=== PATIENT | male | born 1980 | race Caucasian/White ===

== ENCOUNTER 2016-10-04 14:40 | Emergency (ER) | payer SELFPAY ==
[2016-10-04] MEDS ORDERED: OXYCODONE-ACETAMINOPHEN 5-325 MG TABLET PO ONE (15:26)
[2016-10-04] MEDS ORDERED: LIDOCAINE 5% (700 MG) TRANSDERMAL ADH..PATCH TP ONE (15:26)
[2016-10-04] MEDS ORDERED: CYCLOBENZAPRINE HCL 10 MG TABLET PO ONE (15:26)
--- NOTE | 2016-10-04 15:27 | ER Document Report ---
HPI - HPI Patient complains to provider of: low back pain Onset: Other - chronic Onset/Duration: Persistent Quality of pain: Achy, Sharp Pain Level: 5 Context: Complains of chronic low back pain for many years since he was 20 years old. Patient states that occasionally his pain will flareup. Patient states that it is been causing him to miss work. Patient states pain is in typical location of where he had pain in the past. Patient states that he never was evaluated after falling down 2 stories when he was 20 years old. Patient complains of pain that radiates to the left lower extremity along the lateral aspect. Patient denies any paresthesia. Patient denies any extremity weakness. Patient denies any urinary retention or incontinence. Patient denies any fever. Associated Symptoms: Other - Pain that radiates to left lower leg. denies: Fever Exacerbated by: Standing, Movement, Walking Relieved by: Denies Similar symptoms previously: Yes Recently seen / treated by doctor: No - ROS ROS below otherwise negative: Yes Systems Reviewed and Negative: Yes All other systems reviewed and negative - CONSTITUTIONAL Constitutional: DENIES: Fever, Chills - NEURO Neurology: DENIES: Headache, Weakness - MUSCULOSKELETAL Musculoskeletal: REPORTS: Extremity pain, Back Pain - DERM Skin Color: Normal Skin Problems: None Past Medical History - General Information source: Patient - Social History Smoking Status: Current Every Day Smoker Chew tobacco use (# tins/day): No Frequency of alcohol use: Rare Drug Abuse: None Occupation: painting Lives with: Family Family History: Reviewed & Not Pertinent Renal/ Medical History: Denies: Hx Peritoneal Dialysis Musculoskeltal Medical History: Reports Other - back pain Surgical Hx: Negative - Immunizations Immunizations up to date: No Hx Diphtheria, Pertussis, Tetanus Vaccination: Yes Vertical Provider Document - CONSTITUTIONAL Agree With Documented VS: Yes Exam Limitations: No Limitations General Appearance: WD/WN, No Apparent Distress Notes: PHYSICAL EXAMINATION: GENERAL: Well-appearing, well-nourished and in no acute distress. HEAD: Atraumatic, normocephalic. EYES: sclera clear, anicteric, conjunctiva are normal. ENT: nares patent, Moist mucous membranes. NECK: Normal range of motion, supple no lymphadenopathy LUNGS: respirations unlabored HEART: Regular rate and rhythm without murmurs EXTREMITIES: Normal range of motion, no pitting or edema. No cyanosis. Gait normal, pt ambulates without difficulty BACK: left lower lumbar paraspinal tenderness, no lumbar midline tenderness, no deformities or step-offs. No CVA tenderness. NEUROLOGICAL: Cranial nerves grossly intact. Normal speech, normal gait. No saddle anesthesia. PSYCH: Normal mood, normal affect. SKIN: Warm, Dry, normal turgor, no rashes or lesions noted. - INFECTION CONTROL TRAVEL OUTSIDE OF THE [place] IN LAST 30 DAYS: No - RESPIRATORY O2 Sat by Pulse Oximetry: 99 Course - Re-evaluation Re-evalutation: 10/04/16 16:33 The patient presents with low back pain without signs of spinal cord compression , cauda equina syndrome, infection, aneurysm, or other serious etiology. The patient is neurologically intact. Given the extremely risk of these diagnoses further testing and evaluation for these possibilities does not appear to be indicated at this time. Patient has been instructed to return if the symptoms worsen or change in any way. - Vital Signs Vital signs: Temp Pulse Resp BP Pulse Ox 97.9 F 89 16 125/96 H 99 10/04/16 14:43 10/04/16 14:43 10/04/16 14:43 10/04/16 14:43 10/04/16 14:43 - Diagnostic Test Radiology reviewed: Reports reviewed Discharge - Discharge Clinical Impression: Low back pain Qualifiers: Chronicity: unspecified Back pain laterality: left Sciatica presence: with sciatica Sciatica laterality: sciatica of left side Qualified Code(s): M54.42 - Lumbago with sciatica, left side Condition: Stable Disposition: HOME, SELF-CARE Instructions: Family Physicians / Practices Additional Instructions: Return immediately for any new or worsening symptoms Followup with your primary care provider, call tomorrow to make a followup appointment LOW BACK PAIN: Three out of every four people will have an episode of disabling back pain during their lifetime. Most commonly the pain is due to straining of the muscles and ligaments in the low back. Usual treatment includes: (1) Rest on a firm surface. Avoid lying on your stomach. (2) Ice pack the painful area. After a few days, gentle heat may be used intermittently to relax the area, or ice packs can be continued. (3) Medication may be needed -- muscle relaxers and antiinflammatory medicines are commonly used. (4) As the back improves, exercises are prescribed to strengthen the back and abdominal muscles. Your doctor will advise you on the proper care for your back at each stage in your recovery. You may be better in a few days -- or healing may take several weeks. If new symptoms of a "herniated disc" (radiation of pain, numbness, or tingling down the back of the leg or weakness in the leg) occur, you should be re-examined. Further testing may be necessary. ORAL NARCOTIC MEDICATION: You have been given a prescription for pain control. This medication is a narcotic. It's best taken with food, as nausea can result if taken on an empty stomach. Don't operate machinery or drive within six hours of taking this medication. Do not combine this medicine with alcohol, or with any medication which can cause sedation (such as cold tablets or sleeping pills) unless you get permission from the physician. Narcotics tend to cause constipation. If possible, drink plenty of fluids and eat a diet high in fiber and fruits. Please be aware that prescription narcotics also have the potential for abuse. People become addicted to these medications because of the general sense of wellbeing that they induce. This feeling along with a significant reduction in tension, anxiety, and aggression provides a stimulating seductive quality to these drugs. Once your pain is under control, we encourage you to discard your unused narcotics. MUSCLE RELAXERS: Muscle relaxing medications are usually prescribed for acute muscle spasm or injury to the neck and back. They are often combined with antiinflammatory pain medication for increased relief. You may stop the muscle relaxer when the pain and stiffness have improved. Start the medication again if spasms recur. Muscle relaxers may cause drowsiness, especially with the first dose. Do not operate machinery or drive while under the effects of the medication. Most muscle relaxers last up to 24 hours. Do not combine the medication with alcohol. ICE PACKS: Apply ice packs frequently against the painful area. Many different schedules are recommended, such as "20 minutes on, 20 minutes off" or "one hour ice, two hours rest." If you need to work, you may need to go longer between ice treatments. You should plan to have the area ice packed AT LEAST one fourth of the time. The ice should be applied over the wrap, tape, or splint, or over a layer of cloth -- not directly against the skin. Some ice bags have a built-in cloth and can be put directly on the skin. WARM PACKS: After approximately two days, apply gentle heat (such as a heating pad or hot water bottle) for about 20 to 30 minutes about every two hours -- at least four times daily. Warmth and elevation will help you make a more rapid recovery , and will ease the pain considerably. Do not use HOT heat, and never apply heat for longer than 30 minutes. The continuous heat can invisibly damage skin and muscles -- even when no burn is seen on the surface. Damaged muscles can make you MORE sore. FOLLOW-UP CARE: If you have been referred to a physician for follow-up care, call the physician s office for an appointment as you were instructed or within the next two days. If you experience worsening or a significant change in your symptoms, notify the physician immediately or return to the Emergency Department at any time for re-evaluation. Prescriptions: Cyclobenzaprine HCl [Flexeril 10 Mg Tablet] 10 mg PO TID #15 tablet Oxycodone HCl/Acetaminophen [Percocet 5-325 mg Tablet] 1 tab PO ASDIR PRN #15 tablet PRN Reason: Prednisone [Deltasone 20 mg Tablet] 3 tab PO DAILY 5 Days Forms: Return to Work Referrals: [facility] [Provider Group] - Follow up as needed
--- NOTE | 2016-10-04 16:17 | RADIOLOGY REPORT (SQ) ---
EXAM DESCRIPTION: L SPINE WHOLE COMPLETED DATE/TIME: 10/04/2016 4:07 pm REASON FOR STUDY: low back pain COMPARISON: None. NUMBER OF VIEWS: Five views including obliques. TECHNIQUE: AP, lateral, oblique, and sacral radiographic images acquired of the lumbar spine. LIMITATIONS: None. FINDINGS: MINERALIZATION: Normal. SEGMENTATION: Normal. No transitional anatomy. ALIGNMENT: Normal. VERTEBRAE: Maintained height. No fracture or worrisome bone lesion. DISCS: Preserved height. No significant osteophytes or end plate irregularity. POSTERIOR ELEMENTS: Pedicles and facets are intact. No pars defect or posterior arch defects. HARDWARE: None in the spine. PARASPINAL SOFT TISSUES: Normal. PELVIS: Intact as visualized. No fractures or worrisome bone lesions. SI joints intact. OTHER: No other significant finding. IMPRESSION: NORMAL 5 VIEW LUMBAR SPINE. TECHNICAL DOCUMENTATION: JOB ID: [id number] [employer]- All Rights Reserved
[2016-10-04 16:48] VITALS: BP 121/72
== END 2016-10-04 16:48 | disposition home or self-care (01) ==
LOC: ER 14:40
DX: M54.42 Lumbago with sciatica, left side (principal); M54.5 Low back pain; M79.605 Pain in left leg; F17.200 Nicotine dependence, unspecified, uncomplicated
CPT/HCPCS: 72110; 99283

== ENCOUNTER 2017-03-12 12:32 | Emergency (ER) | payer SELFPAY ==
--- NOTE | 2017-03-12 13:20 | ER Document Report ---
ED General - General Chief Complaint: Overdose Stated Complaint: POSSIBLE OVERDOSE Time Seen by Provider: 03/12/17 13:12 Information source: Patient Notes: Patient is a 36-year-old male with a past medical history of admitted heroin abuse who presents today with his girlfriend. Supposedly the girlfriend prior to calling EMS found the patient "blue and seizing". When EMS arrived they noted pinpoint pupils and gave the patient 2 mg of intranasal Narcan with return of responsiveness. Patient currently denies any headache, chest pain, nausea, vomiting, or fevers. Patient states he swallowed a 25 mcg fentanyl patch to "get high". Patient states he brought this off the street. Patient denies any other drug abuse. TRAVEL OUTSIDE OF THE [place] IN LAST 30 DAYS: No - HPI Onset: This morning Onset/Duration: Sudden Quality of pain: No pain Severity: Severe Pain Level: Denies Associated symptoms: Other - See above Exacerbated by: Other - See above Relieved by: Other - See above Similar symptoms previously: Yes Recently seen / treated by doctor: No - Related Data Allergies/Adverse Reactions: Penicillins Allergy (Verified 10/04/16 14:44) Past Medical History - General Information source: Patient - Social History Smoking Status: Current Some Day Smoker Cigarette use (# per day): Yes Chew tobacco use (# tins/day): No Smoking Education Provided: No Frequency of alcohol use: None Drug Abuse: Other - See above Family History: Reviewed & Not Pertinent Renal/ Medical History: Denies: Hx Peritoneal Dialysis - Immunizations Immunizations up to date: No Hx Diphtheria, Pertussis, Tetanus Vaccination: Yes Review of Systems - Review of Systems Constitutional: denies: Fever EENT: denies: Eye discharge, Nose discharge Cardiovascular: denies: Chest pain, Palpitations Respiratory: denies: Short of breath Gastrointestinal: denies: Vomiting Genitourinary: denies: Dysuria Musculoskeletal: denies: Leg swelling Skin: Other - no hives. denies: Rash Neurological/Psychological: Other - no slurred speech -: Yes All other systems reviewed and negative Physical Exam - Vital signs Vitals: Temp Pulse Resp BP Pulse Ox 98.3 F 87 16 123/82 97 03/12/17 12:40 03/12/17 12:40 03/12/17 12:40 03/12/17 12:40 03/12/17 12:40 Notes: Reviewed vital signs and nursing note as charted by RN. CONSTITUTIONAL: Alert and oriented and responds appropriately to questions. Well -appearing; well-nourished HEAD: Normocephalic; atraumatic EYES: PERRL; no nystagmus ENT: Normal nose; no rhinorrhea; moist mucous membranes; pharynx without lesions noted NECK: Supple without meningismus; no carotid bruits; non-tender; no cervical lymphadenopathy, no masses CARD: Regular rate and rhythm; no murmurs RESP: Normal chest excursion without splinting or tachypnea; breath sounds clear and equal bilaterally ABD/GI: Normal bowel sounds; non-distended; soft, non-tender BACK: The back appears normal and is non-tender to palpation EXT: Normal ROM in all joints; non-tender to palpation; no edema SKIN: Normal color for age and race; warm; patient does have what appears to be a needle martine to the right arm in the antecubital fossa NEURO: CN II through XII are intact. Moves all extremities equally; Motor and sensory function intact PSYCH: The patient's mood and manner are appropriate. Grooming and personal hygiene are appropriate. Course - Re-evaluation Re-evalutation: 03/12/17 13:19 Given the history and physical examination we undressed the patient to make sure that there are no other patches present. Patient currently has stable vital signs with no focal neurological deficits. I called the Poison Control Center who recommended 24-hour observation given the ingestion of the patch. Patient denies any and all suicidal ideations. Labs are pending. 03/12/17 14:54 Patient is still awake and alert. He is still very polite. He still oriented 4. Patient has refused all laboratory work, EKG, and x-rays. Patient states he does not want an increased pill. I have explained to him and his significant other the importance of observation and admission. I have explained that we can provide multiple pain options and have case management talk to the patient. Patient understands but still does not want these labs performed. I told the patient that he is welcome to stay as long as he would like. Patient states he would like to go home. I have explained to the patient and the significant other the seriousness of this possible condition including permanent disability and and the recommendation from the Poison Control Center. Patient understands this. Patient is oriented 4. He understands risks and benefits. This was all explained in the presence of his significant other. Patient will be welcome to return at any time. He has been welcome to stay in the emergency department for as long as he would like. - Vital Signs Vital signs: Temp Pulse Resp BP Pulse Ox 98.3 F 87 11 L 111/67 97 03/12/17 12:40 03/12/17 12:40 03/12/17 13:08 03/12/17 13:08 03/12/17 13:09 Discharge - Discharge Clinical Impression: Accidental overdose Qualifiers: Encounter type: initial encounter Qualified Code(s): T50.901A - Poisoning by unspecified drugs, medicaments and biological substances, accidental ( unintentional), initial encounter Condition: Poor Disposition: AGAINST MEDICAL ADVICE Additional Instructions: Please feel free to return at any time that you would like for further evaluation and assessment. Please come back immediately with any pain, excessive sleepiness, difficulty breathing, or any other acute problems. Please follow-up with the primary doctor as we have discussed.
[2017-03-12 16:08] VITALS: BP 109/54
== END 2017-03-12 16:12 | disposition left against medical advice (07) ==
LOC: ER 12:32
DX: T40.4X1A Poisoning by other synthetic narcotics, accidental (unintentional), initial encounter (principal); F17.210 Nicotine dependence, cigarettes, uncomplicated; Z88.0 Allergy status to penicillin
CPT/HCPCS: 99284

== ENCOUNTER 2017-10-08 18:46 | Emergency (ER) | payer SELFPAY ==
--- NOTE | 2017-10-08 19:16 | ER Document Report ---
ED Medical Screen (RME) - General Chief Complaint: Abdominal Pain Stated Complaint: ABDOMINAL PAIN Time Seen by Provider: 10/08/17 19:14 Mode of Arrival: Ambulatory Information source: Patient TRAVEL OUTSIDE OF THE [place] IN LAST 30 DAYS: No - HPI Patient complains to provider of: abd pain Onset: This morning - pt with mid-epigastric pain that started earlier today. With N and vomiting times 1 - Related Data Allergies/Adverse Reactions: Penicillins Allergy (Verified 10/08/17 18:47) Past Medical History Renal/ Medical History: Denies: Hx Peritoneal Dialysis - Immunizations Immunizations up to date: No Hx Diphtheria, Pertussis, Tetanus Vaccination: Yes Physical Exam - Vital signs Vitals: Temp Pulse Resp BP Pulse Ox 97.7 F 56 L 20 149/94 H 100 10/08/17 19:03 10/08/17 19:03 10/08/17 19:03 10/08/17 19:03 10/08/17 19:03 Course - Vital Signs Vital signs: Temp Pulse Resp BP Pulse Ox 97.7 F 56 L 20 149/94 H 100 10/08/17 19:03 10/08/17 19:03 10/08/17 19:03 10/08/17 19:03 10/08/17 19:03
[2017-10-08] MEDS ORDERED: KETOROLAC TROMETHAMINE INJ/PF 30 MG/1 ML SDV IV ONE (20:24)
--- NOTE | 2017-10-08 20:27 | RADIOLOGY REPORT (SQ) ---
EXAM DESCRIPTION: ACUTE ABDOMEN SERIES COMPLETED DATE/TIME: 10/08/2017 7:29 pm REASON FOR STUDY: abd pain COMPARISON: None. NUMBER OF VIEWS: Three views. TECHNIQUE: Frontal chest, supine abdomen and upright/decubitus abdomen radiographic images acquired. LIMITATIONS: None. FINDINGS: CHEST: Airspace opacity noted at the right infrahilar region. No sizable pleural effusion or pneumothorax. FREE AIR: None. BOWEL GAS PATTERN: Nonobstructive pattern. No dilated loops or air fluid levels. CALCIFICATIONS: No suspicious calcifications. HARDWARE: None in the abdomen. SOFT TISSUES: No gross mass or suggestion of organomegaly. BONES: No acute findings. IMPRESSION: 1. Nonobstructive bowel gas pattern. 2. Airspace opacity at the right infrahilar region, may represent atelectasis or pneumonia. Radiogr aphic followup recommended to ensure complete resolution and exclude a different etiology. TECHNICAL DOCUMENTATION: JOB ID: [id number] 2010 [employer]- All Rights Reserved Reading location - IP/workstation name: [email or web address]
[2017-10-08 20:38] LABS: ABSOLUTE BASOPHILS # (AUTO) 0.1 10^3/uL (0.0-0.2); ABSOLUTE EOSINOPHILS # (AUTO) 0.2 10^3/uL (0.0-0.6); ABSOLUTE LYMPHOCYTES (AUTO) 2.2 10^3/uL (0.5-4.7); ABSOLUTE MONOCYTES (AUTO) 0.8 10^3/uL (0.1-1.4); ABSOLUTE NEUT (AUTO) 8.2 10^3/uL (1.7-8.2); BASOPHILS % (AUTO) 0.6 % (0-2); EOSINOPHILS % (AUTO) 1.7 % (0-6); HEMATOCRIT 48.1 % (37.9-51.0); HEMOGLOBIN 16.8 g/dL (13.5-17.0); LYMPHOCYTES % (AUTO) 19.3 % (13-45); MEAN CORPUSCULAR HEMOGLOBIN 32.7 pg (27.0-33.4); MEAN CORPUSCULAR HGB CONC 34.9 g/dL (32.0-36.0); MEAN CORPUSCULAR VOLUME 94 fl (80-97); PLATELET COUNT 246 10^3/uL (150-450); RED BLOOD COUNT 5.12 10^6/uL (4.35-5.55); RED CELL DISTRIBUTION WIDTH 13.3 % (11.5-14.0); SEGMENTED NEUTROPHILS % (AUTO) 71.4 % (42-78); TOTAL CELLS COUNTED % (AUTO) 100 %; WHITE BLOOD COUNT 11.5 10^3/uL (4.0-10.5)
[2017-10-08 20:42] LABS: APPEARANCE,URINE CLEAR; BILIRUBIN,URINE NEGATIVE (NEGATIVE); COLOR,URINE STRAW; GLUCOSE, URINE NEGATIVE (NEGATIVE); KETONES,URINE TRACE mg/dL (NEGATIVE); LEUKOCYTE ESTERASE,URINE NEGATIVE (NEGATIVE); NITRITE,URINE NEGATIVE (NEGATIVE); PROTEIN,URINE NEGATIVE (NEGATIVE); URINE SPECIFIC GRAVITY 1.005; UROBILINOGEN,URINE NEGATIVE mg/dL (<2.0)
[2017-10-08] MEDS ORDERED: NORMAL SALINE 1000 ML 1,000 ML IV ONE (21:14)
[2017-10-08] MEDS ORDERED: MORPHINE SULFATE 10 MG/ML INJ IV ONE (21:15)
[2017-10-08] MEDS ORDERED: ONDANSETRON HCL INJ/PF 4 MG/2 ML SDV IV ONE (21:15)
--- NOTE | 2017-10-08 21:17 | ER Document Report ---
ED GI/ - General Chief Complaint: Abdominal Pain Stated Complaint: ABDOMINAL PAIN Time Seen by Provider: 10/08/17 19:14 Mode of Arrival: Ambulatory Notes: Patient is a 36-year-old male comes emergency department for chief complaint of upper abdominal pain and vomiting. He states he has vomited 4 times since last night, nonbloody, normal bowel movement within the past 24 hours, denies fever or chills. Denies back pain. He states pain is very sharp at this time. He denies surgeries or daily medications. He smokes, drinks alcohol, denies IVDA, has taken street percocet in the past. TRAVEL OUTSIDE OF THE [place] IN LAST 30 DAYS: No - Related Data Allergies/Adverse Reactions: Penicillins Allergy (Verified 10/08/17 18:47) Past Medical History - General Information source: Patient - Social History Smoking Status: Current Every Day Smoker Chew tobacco use (# tins/day): No Frequency of alcohol use: Occasional Drug Abuse: None Lives with: Family Family History: Reviewed & Not Pertinent Patient has suicidal ideation: No Patient has homicidal ideation: No Renal/ Medical History: Denies: Hx Peritoneal Dialysis - Immunizations Immunizations up to date: No Hx Diphtheria, Pertussis, Tetanus Vaccination: Yes Review of Systems - Review of Systems Constitutional: No symptoms reported EENT: No symptoms reported Cardiovascular: No symptoms reported Respiratory: No symptoms reported Gastrointestinal: See HPI Genitourinary: No symptoms reported Male Genitourinary: No symptoms reported Musculoskeletal: No symptoms reported Skin: No symptoms reported Hematologic/Lymphatic: No symptoms reported Neurological/Psychological: No symptoms reported Physical Exam - Vital signs Vitals: Temp Pulse Resp BP Pulse Ox 97.7 F 56 L 20 149/94 H 100 10/08/17 19:03 10/08/17 19:03 10/08/17 19:03 10/08/17 19:03 10/08/17 19:03 - Notes Notes: GENERAL: Alert, interacts well. Slightly disheveled. HEAD: Normocephalic, atraumatic. EYES: Pupils equal, round, and reactive to light. Extraocular movements intact. ENT: Oral mucosa moist, tongue midline. NECK: Full range of motion. Supple. Trachea midline. LUNGS: Clear to auscultation bilaterally, no wheezes, rales, or rhonchi. No respiratory distress. HEART: Regular rate and rhythm. No murmur ABDOMEN: There is tenderness across the upper abdomen, no guarding, lower abdomen is completely benign. No distention. EXTREMITIES: Moves all 4 extremities spontaneously. No edema, normal radial and dorsalis pedis pulses bilaterally. No cyanosis. BACK: no cervical, thoracic, lumbar midline tenderness. No saddle anesthesia, normal distal neurovascular exam. NEUROLOGICAL: Alert and oriented x3. Normal speech. [cranial nerves II through XII grossly intact]. PSYCH: Normal affect, normal mood. SKIN: Warm, dry, normal turgor. No rashes or lesions noted. Course - Re-evaluation Re-evalutation: Patient on initial evaluation appears mildly uncomfortable but not as severe distress. He does have generalized upper abdominal tenderness, lower abdomen is completely benign. CBC with mild leukocytosis but no shift, chemistry shows low bicarbonate at 19, LFTs slightly elevated with ALT greater than AST. Bilirubin is normal, lipase is normal. Not an obstructive pattern. Ultrasound unremarkable with no ductal dilatation, cholecystitis, or other acute etiology noted. Acute abdominal series from triage reviewed, unremarkable bowels, questionable area on the chest x-ray for possible consolidation versus atelectasis, however patient has no fever, cough, shortness of breath, chest pain, or any other thoracic symptoms. Discussed results with patient. After discussion patient is in agreement for hepatitis panel to be performed, however we did not have enough blood in the lab and then we attempted to draw more blood patient changed his mind and states he will follow-up with primary for additional evaluation and management instead. Discussed treatments, return precautions, patient states understanding and agreement. Patient tolerated p.o. medications without any difficulty. Drinking fluids. Stable at time of discharge. - Vital Signs Vital signs: Temp Pulse Resp BP Pulse Ox 97.4 F 60 16 144/84 H 99 10/09/17 00:14 10/09/17 00:14 10/09/17 00:14 10/09/17 00:14 10/09/17 00:14 - Laboratory Result Diagrams: 10/08/17 20:21 10/08/17 22:25 Laboratory results interpreted by me: 10/08/17 10/08/17 10/08/17 20:21 20:21 22:25 WBC 11.5 H Carbon Dioxide 19 L AST 60 H ALT 122 H Urine Ketones TRACE H Discharge - Discharge Clinical Impression: Upper abdominal pain Vomiting Qualifiers: Vomiting type: unspecified Vomiting Intractability: non-intractable Nausea presence: with nausea Qualified Code(s): R11.2 - Nausea with vomiting, unspecified Condition: Stable Disposition: HOME, SELF-CARE Additional Instructions: Your ultrasound is normal. Your evaluation and symptoms are most consistent with inflammation of the upper gastrointestinal tract, recommendation is to take the Carafate, famotidine, as prescribed. You can also take Tums and Rolaids. Take Phenergan for nausea. Avoid alcohol, smoking, caffeine, NSAIDs, spicy food. Follow-up with primary care for additional evaluation and management. Because of elevated liver function tests I recommend follow-up testing including hepatitis panel as we discussed. Return if you worsen including vomiting, vomiting blood, severe pain, fever, black stools, or any other concerning symptoms. Prescriptions: Famotidine [Pepcid 20 mg Tablet] 20 mg PO BID #20 tablet Promethazine HCl [Phenergan 25 mg Tablet] 25 mg PO Q6H PRN #20 tablet PRN Reason: Sucralfate [Carafate 1 gm Tablet] 1 gm PO QID #20 tablet Forms: Return to Work
--- NOTE | 2017-10-08 22:47 | RADIOLOGY REPORT (SQ) ---
EXAM DESCRIPTION: US ABDOMEN LIMITED COMPLETED DATE/TME: 10/08/2017 21:14 CLINICAL HISTORY: 36 years Male, epigastric pain, vomiting Comparison: None. LIMITATIONS: None. FINDINGS: Gallbladder, negative sonographic Marsh's test, liver, a 0.3-cm diameter common bile duct, no intrahepatic ductal dilation, 11-cm right kidney, pancreas, visualized vasculature/abdominal aorta, and no significant ascites appear otherwise unremarkable. IMPRESSION: Normal RUQ-Abdominal Sonogram.
[2017-10-08 23:03] LABS: ALANINE AMINOTRANSFERASE 122 U/L (21-72); ALBUMIN 4.1 g/dL (3.5-5.0); ALKALINE PHOSPHATASE 71 U/L (38-126); ANION GAP 14 (5-19); ASPARTATE AMINO TRANSFERASE 60 U/L (17-59); BILIRUBIN,DIRECT 0.3 mg/dL (0.0-0.4); BILIRUBIN,TOTAL 0.8 mg/dL (0.2-1.3); BLOOD UREA NITROGEN 17 mg/dL (7-20); CARBON DIOXIDE 19 mmol/L (22-30); CHLORIDE 107 mmol/L (98-107); GLUCOSE 87 mg/dL (75-110); LIPASE 136.1 U/L (23-300); POTASSIUM 4.2 mmol/L (3.6-5.0); SODIUM 140.4 mmol/L (137-145); TOTAL PROTEIN 7.1 g/dL (6.3-8.2)
[2017-10-08] MEDS ORDERED: MORPHINE SULFATE IR 15 MG TABLET PO ONE (23:22)
[2017-10-08] MEDS ORDERED: SUCRALFATE 1 GM TABLET PO ONE (23:22)
[2017-10-08] MEDS ORDERED: FAMOTIDINE 20 MG TABLET PO ONE (23:22)
[2017-10-09 00:18] VITALS: BP 144/84
== END 2017-10-09 00:20 | disposition home or self-care (01) ==
LOC: ER 18:46
DX: R10.10 Upper abdominal pain, unspecified (principal); R11.2 Nausea with vomiting, unspecified; D72.829 Elevated white blood cell count, unspecified; R74.0 Nonspecific elevation of levels of transaminase and lactic acid dehydrogenase [LDH]; F17.200 Nicotine dependence, unspecified, uncomplicated; Z88.0 Allergy status to penicillin
CPT/HCPCS: 99285; 96361; 96374; 96375; 36415; 83690; 85025; 80053; 81001; 74022; 76705; J1885; J2270; J2405; J7030

== ENCOUNTER 2018-02-09 12:24 | Emergency (ER) | payer SELFPAY ==
[2018-02-09 13:13] VITALS: BP 120/88
[2018-02-09] MEDS ORDERED: IBUPROFEN 600 MG TABLET PO ONE (13:37)
[2018-02-09] MEDS ORDERED: DOXYCYCLINE HYCLATE 100 MG TABLET PO ONE (13:37)
--- NOTE | 2018-02-09 13:37 | ER Document Report ---
ED Extremity Problem, Upper - General Chief Complaint: Laceration Stated Complaint: LACERATION Time Seen by Provider: 02/09/18 13:18 Mode of Arrival: Ambulatory Information source: Patient Notes: 37-year-old male presented to ED for complaint of laceration to his left forearm that he cut on a piece of metal yesterday. He states he put toilet paper and bacitracin on the arm and then wrapped it up yesterday and when he took this "dressing" off of his arm this morning he was concerned so he came to the emergency room to have the arm assessed. Patient is alert and oriented respirations regular and unlabored speaking in full sentences. He states his tetanus is up-to-date and does not needed. He states he does have some mild pain. He states he called his mother and she told him to come to the emergency room to have this examined. TRAVEL OUTSIDE OF THE [place] IN LAST 30 DAYS: No - HPI Patient complains to provider of: Left, Forearm Onset: Yesterday Recent injury: Yes Where: Outdoors Quality of pain: Achy, Sharp Severity of pain: Moderate Pain Level: 3 Associated symptoms: Other - Patient to the left forearm Exacerbated by: Movement Relieved by: Nothing Similar symptoms previously: Yes Recently seen / treated by doctor: No - Related Data Allergies/Adverse Reactions: Penicillins Allergy (Verified 10/08/17 18:47) Past Medical History - General Information source: Patient - Social History Smoking Status: Current Every Day Smoker Cigarette use (# per day): Yes - 1/2 pack/day Chew tobacco use (# tins/day): No Smoking Education Provided: Yes - 4 minutes Frequency of alcohol use: None Drug Abuse: None Occupation: construction Lives with: Alone Family History: Reviewed & Not Pertinent Patient has suicidal ideation: No Patient has homicidal ideation: No - Past Medical History Cardiac Medical History: Reports: None Pulmonary Medical History: Reports: None EENT Medical History: Reports: None Neurological Medical History: Reports: None Endocrine Medical History: Reports: None Renal/ Medical History: Reports: None Malignancy Medical History: Reports None GI Medical History: Reports: None Musculoskeletal Medical History: Reports Hx Musculoskeletal Trauma - Left second finger and the finger removed by injury Skin Medical History: Reports None Psychiatric Medical History: Reports: None Traumatic Medical History: Reports: Hx Fractures - And does second finger traumatically amputated Infectious Medical History: Reports: None Past Surgical History: Reports: Hx Inguinal Hernia, Hx Myringotomy, Hx Orthopedic Surgery - End of second finger - Immunizations Immunizations up to date: No Hx Diphtheria, Pertussis, Tetanus Vaccination: Yes Review of Systems - Review of Systems Constitutional: No symptoms reported EENT: No symptoms reported Cardiovascular: No symptoms reported Respiratory: No symptoms reported Gastrointestinal: No symptoms reported Genitourinary: No symptoms reported Male Genitourinary: No symptoms reported Musculoskeletal: No symptoms reported Skin: Other Hematologic/Lymphatic: No symptoms reported Neurological/Psychological: No symptoms reported Physical Exam - Vital signs Vitals: Temp Pulse Resp BP Pulse Ox 98.5 F 108 H 18 120/88 H 99 02/09/18 13:12 02/09/18 13:12 02/09/18 13:12 02/09/18 13:12 02/09/18 13:12 Interpretation: Normal - General General appearance: Appears well, Alert - HEENT Head: Normocephalic, Atraumatic Eyes: Normal Pupils: PERRL - Respiratory Respiratory status: No respiratory distress Chest status: Nontender Breath sounds: Normal Chest palpation: Normal - Cardiovascular Rhythm: Regular Heart sounds: Normal auscultation Murmur: No - Abdominal Inspection: Normal Distension: No distension Bowel sounds: Normal Tenderness: Nontender Organomegaly: No organomegaly - Back Back: Normal, Nontender - Extremities General upper extremity: Normal color, Normal ROM, Normal temperature General lower extremity: Normal inspection, Nontender, Normal color, Normal ROM , Normal temperature, Normal weight bearing. No: Dony's sign Shoulder: Normal Arm: Normal Elbow: Normal Forearm: Laceration - 2.5 cm open laceration to the left forearm from yesterday Wrist: Normal, Nontender Hand: Normal, Nontender - Neurological Neuro grossly intact: Yes Cognition: Normal Orientation: AAOx4 [place] Coma Scale Eye Opening: Spontaneous [place] Coma Scale Verbal: Oriented [place] Coma Scale Motor: Obeys Commands [place] Coma Scale Total: 15 Speech: Normal Motor strength normal: LUE, RUE, LLE, RLE Sensory: Normal - Psychological Associated symptoms: Normal affect, Normal mood - Skin Skin Temperature: Warm Skin Moisture: Dry Skin Color: Normal Course - Re-evaluation Re-evalutation: 02/09/18 22:22 2.5 cm laceration to the left forearm open clean no drainage at this time no redness at this time. Area was cleaned well with surgical scrub and rinsed bacitracin Telfa and Coban applied. Unable to suture the laceration due to being more than 24 hours old. Patient was given strict instructions on cleaning dressing and keeping the wound covered. Patient was instructed to complete antibiotics. Patient was given instructions on when to return to the ED or primary care doctor for signs and symptoms of infection. Patient verbalized understanding and agreeable treatment plan. He states his mother is a nurse and she has told him that he should take all antibiotics when prescribed. - Vital Signs Vital signs: Temp Pulse Resp BP Pulse Ox 98.5 F 108 H 18 120/88 H 99 02/09/18 13:12 02/09/18 13:12 02/09/18 13:12 02/09/18 13:12 02/09/18 13:12 Discharge - Discharge Clinical Impression: Laceration of left forearm Qualifiers: Encounter type: initial encounter Qualified Code(s): S51.812A - Laceration without foreign body of left forearm, initial encounter Condition: Stable Disposition: HOME, SELF-CARE Instructions: Family Physicians / Practices Additional Instructions: NON-SUTURED LACERATION: Some lacerations cannot be sutured because of increased infection risk, while others simply don't need stitches because they are shallow or very short. Your injury should be protected while it heals. Usually complete healing takes 10 to 14 days. Keep the dressing clean and dry, and change it every day. If you notice increasing pain, redness, swelling, drainage, or tender lumps in the armpit or groin above the injury, infection may be present. You should call the doctor at once. SOAP CLEANSING: Gently wash the wound daily using a mild soap (like Ivory, Phisoderm, Neutrogena). Use warm water, rubbing gently until all debris, ooze, and crusting have been washed from the wound. Allow to dry briefly (about 10 minutes) after cleaning. Repeat this cleansing at least three times a day for the first two days and then once or twice a day. ANTIBIOTIC OINTMENT PROTECTION: Your wounds are such that dressing them is not practical or optional. After cleansing, you should apply a thin coating of antibiotic ointment ( Bacitracin, not Neosporin) to the wounds at least three times daily. This lessens infection risk, and may decrease the amount of scarring. Use a q-tip or dull butter knife, not your finger, to apply this ointment. Any debris or ooze which builds up in the ointment should be gently rubbed off with a sterile gauze pad. Harder crusting may need to be gently scrubbed off with a clean wash cloth with soap and warm water, perhaps applying a warm, wet wash cloth to the wound for ten minutes first. Development of redness, severe itching, or blistering may mean allergy to the ointment. See the doctor. Doxycycline Doxycycline (Vibramycin, Doryx) is an antibiotic of the tetracycline family. This type of drug is useful for infections of the respiratory tract and genital tract, and is sometimes used for intestinal infections. Unlike most tetracyclines, doxycycline can be taken with food. It is longer acting, and (usually) less prone to side effects than regular tetracycline. Tetracycline antibiotics can stain immature teeth and SHOULD NOT BE TAKEN BY CHILDREN, NURSING MOTHERS, OR WOMEN. Tetracyclines can make you more prone to sunburn. Abdominal cramping, nausea, and diarrhea are occasional side effects. Women may experience vaginal yeast infections. Call the doctor at once if you develop hives, itching, shortness of breath , or lightheadedness. FOLLOW-UP CARE: Please return in __3-5___ days for an infection check and dressing change. If you have been referred to another physician for follow-up care, call that physicians office for an appointment as you were instructed. If you experience a significant change in your laceration, or if you are concerned there may be an infection (swelling, redness, drainage, increasing tenderness, red streaks, tender lumps in the armpit or groin above the laceration, or fever) , return to the Emergency Department immediately re-evaluation. Prescriptions: Doxycycline Hyclate 100 mg PO BID #14 capsule Forms: Elevated Blood Pressure, Smoking Cessation Education, Return to Work
== END 2018-02-09 13:44 | disposition home or self-care (01) ==
LOC: ER 12:24
DX: S51.812A Laceration without foreign body of left forearm, initial encounter (principal); W26.8XXA Contact with other sharp object(s), not elsewhere classified, initial encounter; Y93.89 Activity, other specified; F17.210 Nicotine dependence, cigarettes, uncomplicated; Z71.6 Tobacco abuse counseling; Z88.0 Allergy status to penicillin
CPT/HCPCS: 99283; 99406